=== PATIENT | male | born 1980 | race African-American/Black ===

== ENCOUNTER 2016-10-05 09:43 | Emergency (ER) | payer OTHER ==
[~2016-10-05] VITALS: Ht 185.4 cm; Wt 106.6 kg
[~2016-10-05 09:43] MED LIST: HYDROCODONE-AP1 EAC6 PO; PHENERGAN 25 MG25 M1 PO
[2016-10-05] MEDS ORDERED: CYCLOBENZAPRINE5 MG PO (10:22)
[2016-10-05] MEDS ORDERED: PREDNISONE 20 M20 MG PO (10:22)
[2016-10-05] MEDS ORDERED: NORCO 5-325 TA1 EACH PO (10:25)
[2016-10-05 10:36] VITALS: BP 138/77
== END 2016-10-05 10:36 | disposition home or self-care (01) ==
LOC: ER 09:43
DX: M51.26 Other intervertebral disc displacement, lumbar region (principal); J45.909 Unspecified asthma, uncomplicated; K50.90 Crohn's disease, unspecified, without complications; F17.210 Nicotine dependence, cigarettes, uncomplicated

== ENCOUNTER 2018-12-08 07:10 | Emergency (ER) | payer OTHER ==
[~2018-12-08] VITALS: Ht 185.4 cm; Wt 104.3 kg
[~2018-12-08 07:10] MED LIST changes: +CYCLOBENZAPRINE5 MG PO; +NORCO 5-325 TA1 EACH PO; +PREDNISONE 20 M20 MG PO
[2018-12-08 07:14] VITALS: BP 130/76
[2018-12-08] MEDS ORDERED: MEDROLDOSEPACK PO (07:20)
[2018-12-08] MEDS ORDERED: IBUPROFEN 600600 M1 PO (07:20)
[2018-12-08] MEDS ORDERED: NORFLEX100 MG PO (07:20)
== END 2018-12-08 07:20 | disposition home or self-care (01) ==
LOC: ER 07:10
DX: S39.012A Strain of muscle, fascia and tendon of lower back, initial encounter (principal); J45.909 Unspecified asthma, uncomplicated; F17.210 Nicotine dependence, cigarettes, uncomplicated; X58.XXXA Exposure to other specified factors, initial encounter; Y93.89 Activity, other specified; Y92.89 Other specified places as the place of occurrence of the external cause; Y99.8 Other external cause status

== ENCOUNTER 2019-02-15 04:49 | Emergency (ER) | payer OTHER ==
[~2019-02-15] VITALS: Ht 188 cm; Wt 117.9 kg
[~2019-02-15 04:49] MED LIST changes: +IBUPROFEN 600600 M1 PO; +MEDROLDOSEPACK PO; +NORFLEX100 MG PO
[2019-02-15 06:21] LABS: ABSOLUTE NEUTROPHILS 4.8 thou/uL (1.4-8.2); BASOPHILS 0.4 % (0.0-2.0); EOSINOPHILS 4.3 % (0.0-3.0); HEMATOCRIT 39.7 % (42.0-52.0); HEMOGLOBIN 13.3 gm/dL (14.0-18.0); LYMPHOCYTES 29.1 % (24.0-44.0); MCH 30.1 pg (26.0-34.0); MCHC 33.6 g/dL (28.0-37.0); MCV 89.6 fL (80.0-100.0); MONOCYTES 8.7 % (1.0-8.0); PLATELET COUNT 162 thou/uL (150-400); POLYS 57.5 % (36.0-66.0); RBC 4.43 mil/uL (4.50-6.00); RDW 13.6 % (10.5-14.5); WBC 8.4 thou/uL (4.0-11.0)
[2019-02-15 06:22] LABS: CALCIUM 8.9 mg/dL (8.5-10.1); POTASSIUM 3.6 mmol/L (3.5-5.1)
[2019-02-15 06:29] LABS: ALBUMIN 3.2 g/dL (3.4-5.0); TOTAL BILIRUBIN 0.3 mg/dL (<0.1-1.0); TOTAL PROTEIN 7.3 g/dL (6.4-8.2)
[2019-02-15 06:46] LABS: MAGNESIUM 1.8 mg/dL (1.8-2.4); TROPONIN-I <0.06 ng/mL (<0.06)
[2019-02-15] MEDS ORDERED: NAPROSYN500 MG PO (07:06)
[2019-02-15] MEDS ORDERED: ROBAXIN 750 MG750 MG PO (07:06)
[2019-02-15 07:17] VITALS: BP 117/69
--- NOTE | 2019-02-16 08:28 | EKG ---
[address] [address] ELECTROCARDIOGRAM REPORT Name: NIRMAL PUTNAM Room #: [facility]ENTERMig[facility] [id number] Admission: 02/15/19 Attend Phys: Discharge: 02/15/19 Date of : 78 Report #: [id number] THIS REPORT FOR: //name// [facility] ED Test Date: 2019-02-15 Test Time: 05:51:06 Pat Name: NIRMAL PUTNAM Department: Room: Gender: Cultural Historian: [facility] : 1980 Requested By: Jb Serrano Order Number: [id number] MD: Van Vazquez Measurements Intervals [place] Rate: 67 P: 56 AR: 174 QRS: 42 QRSD: 102 T: 34 QT: 383 QTc: 405 Interpretive Statements Sinus rhythm Normal tracing No previous ECG available for comparison Electronically Signed On 02-16-2019 8:28:21 CDT by Van Vazquez [email or web address] <ELECTRONICALLY SIGNED> By: Van Vazquez MD, [facility] 02/16/19 [id number] Van Vazquez MD, FAC /EPI
== END 2019-02-15 07:18 | disposition home or self-care (01) ==
LOC: ER 04:49
PROVIDERS: Emergency Medicine
DX: R42 Dizziness and giddiness (principal); M54.2 Cervicalgia; M54.5 Low back pain; R51 Headache; J45.909 Unspecified asthma, uncomplicated; K50.90 Crohn's disease, unspecified, without complications; F17.210 Nicotine dependence, cigarettes, uncomplicated